=== PATIENT | female | born 1960 | race American Indian/Alaskan Native ===

== ENCOUNTER 2016-09-03 17:25 | Outpatient (CLI) | payer OTHER ==
--- NOTE | 2016-09-04 08:35 | Magnetic Resonance Report ---
MRI BRAIN WITHOUT CONTRAST INDICATION: Headache. COMPARISON: None similar at this institution. FINDINGS: Noncontrast multiplanar and multisequence MRI of the brain demonstrates normal ventricles and sulci without acute infarct, hemorrhage, mass effect or midline shift. No abnormal extra-axial masses or fluid collections. Normal major intracranial vascular flow voids. Normal posterior fossa structures with symmetric seventh and eighth nerve complexes. Symmetric, grossly unremarkable eye globes. Mild bilateral ethmoid sinusitis. Clear remainder imaged paranasal sinuses and mastoid air cells. Partially empty sella. Normal remainder midline structures without evidence of Chiari malformation. Approximately 2.3 x 0.7 cm right parietal skull lesion, axial images 17-20, whether benign or malignant etiology unknown. CONCLUSION: No acute intracranial MRI abnormality, though an inadequately characterized right parietal skull lesion noted, as described. Dedicated clinical correlation recommended. Any combination of MRI contrast enhancement/head CT/plain radiography/nuclear medicine bone scan would help further characterize, as appropriate. Thank you for the opportunity to participate in this patient's care.
--- NOTE | 2016-09-05 09:29 | Magnetic Resonance Report ---
MR LOWER EXTREMITY JOINT LEFT WITHOUT CONTRAST History: Pain in left knee. Technique: Multisequence, multiplanar MRI without contrast through the left knee. Findings: There is a small joint effusion which extends to the suprapatellar bursa. No popliteal cyst. Normal bone marrow signal. No evidence for fracture or bone lesion. There is a subtle linear defect in the medial facet of the retropatellar cartilage. This is best demonstrated on axial proton density fat sat image 24 and coronal proton density fat sat image 24. This could represent a small fissure in the retropatellar cartilage. The remaining cartilage structures are within normal limits. The ACL, PCL, MCL, LCL complex and extensor complexes are intact. Normal popliteus. The menisci demonstrate no abnormality. Para-articular musculature is within normal limits. Impression: Questionable small cartilage fissure in the retropatellar cartilage, medial facet. Small joint effusion. No ligamentous or meniscal abnormality detected.
== END 2016-09-03 17:26 | disposition home or self-care (01) ==
LOC: MRI 17:25
PROVIDERS: ATTEND Psychiatry & Neurology Neurology
DX: R51 Headache (principal); J32.2 Chronic ethmoidal sinusitis; M25.562 Pain in left knee; M25.462 Effusion, left knee
CPT/HCPCS: 70551; 73721